=== PATIENT | male | born 1945 | race Caucasian/White ===

== ENCOUNTER 2016-10-14 12:47 | Emergency (ER) | payer OTHER, MEDICARE ==
[~2016-10-14] VITALS: Ht 188 cm; Wt 113.3 kg
[~2016-10-14 12:47] MED LIST: ALBUTEROL2.5 MG/3 M IH; CEFTIN500 MG PO; COUMADIN7.5 MG PO; DULERA 200 MCG/13 GM IH; METAGLIP 5/51 TABLET PO; MEVACOR40 MG PO; NORVASC10 MG PO; OMEPRAZOLE40 M1 PO; PREDNISONE5 MG PO; SINGULAIR10 MG PO; SPIRIVA RESPIMAT4 GM IH; SPIRIVA1 INHALATI IH; TRAMADOL HCL50 MG PO; TYLENOL WITH C1 EACH PO; VENTOLIN HFA18 GM IH
[2016-10-14 14:28] LABS: HEMATOCRIT 40.5 % (38.0-50.0); MCH 27.6 PG (29.0-34.0); MCHC 32.3 G/DL (30.0-36.0); MCV 85.3 FL (86-99); MEAN PLAT.VOLUME 9.7 uM^3 (9.0-12.4); PLATELET COUNT 195 K/uL (156-360); RBC DIS.WIDTH-CV 14.8 % (11.8-14.6); RBC DIS.WIDTH-SD 46.8 % (39-53); RED BLOOD COUNT 4.75 M/uL (4.00-5.50); WHITE BLOOD COUNT 6.2 K/uL (4.1-10.2)
[2016-10-14 14:40] LABS: CHLORIDE 100 mEq/L (99-109); INTER. NORMALIZED RATIO 3.7; POTASSIUM 4.7 mEq/L (3.7-5.4); PROTHROMBIN TIME 39.4 (9.2-11.2); PTT 40.4 (25-32); SODIUM 135 mEq/L (136-147)
[2016-10-14 14:42] LABS: GLUCOSE 222 mg/dL (70-99)
[2016-10-14 14:43] LABS: ANION GAP 5 MEQ/L (2-14)
[2016-10-14 14:44] LABS: TOTAL BILIRUBIN 0.6 mg/dL (0.0-1.0)
[2016-10-14 14:45] LABS: ALKALINE PHOSPHATASE 55 IU/L (3-129)
[2016-10-14 14:46] LABS: GFR ESTIMATE (CALCULATED) > 59 mL/min/
[2016-10-14 14:47] LABS: UREA NITROGEN (BUN) 18 mg/dL (9-23)
[2016-10-14 18:04] VITALS: BP 140/87
== END 2016-10-14 18:05 | disposition home or self-care (01) ==
LOC: EME 12:47 → RME 12:47
PROVIDERS: Nurse Practitioner Family
DX: K92.2 Gastrointestinal hemorrhage, unspecified (principal); E11.9 Type 2 diabetes mellitus without complications; E78.5 Hyperlipidemia, unspecified; Z79.01 Long term (current) use of anticoagulants; Z86.718 Personal history of other venous thrombosis and embolism; Z87.891 Personal history of nicotine dependence; Z86.73 Personal history of transient ischemic attack (TIA), and cerebral infarction without residual deficits
CPT/HCPCS: 74177; 80053; 85027; 85610; 85730; 99281; 99283